=== PATIENT | male | born 1945 | race Caucasian/White ===

== ENCOUNTER → 2018-06-11 14:54 | Outpatient (CLI) | payer SELFPAY ==
--- NOTE | 2018-06-11 | CYSPIN_PTH ---
PATIENT: BAN RIVAS LOC: [facility] U#:[id number] AGE/SX: 80/M ROOM: RE06/11/[address]: Dr. Christ Santos MD : 1945 BED: DIS: SPEC #: [id number] RECD: 06/12/18 09:20 STATUS: KATHERINE EVIN #: [id number] MARILOU: 06/11/18 00:[address]: Christ Santos DEPT: CYTOLOGY RECD BY: Lauri Kemp Tissues: Urine Procedures: Pap Stain (control) Special Stain Group II Cytospin Fluid HEADER OPERATION: Not noted PRE-OP DIAGNOSIS: Dysuria; history of bladder mass on ultrasound TISSUE SUBMITTED: Urine for cytology DIAGNOSIS CYTOLOGY Urine for cytology (cytospin): Negative for malignant cells. AM:javier 06/13/18 COMMENT The specimen contains abundant acute inflammatory cells. Clinical correlation is suggested. CYTOLOGY STUDY Slides are reviewed. CYTOLOGY GROSS Received is <0.5 ml of clear yellow fluid labeled with the patient's name and and designated per the requisition as urine. Submitted for cytology preparation. 06/12/18 TC:5 CPT: 49888
[2018-06-11 15:06] LABS: Cytology, Body Fluid / CSF SEE PATHOLOGY REPORT
[2018-06-11 15:47] LABS: Absolute Lymphocyte Count 2.61 X10^3/ul (0.83-4.51); Absolute Neutrophil Count 4.4 X10^3/uL (2.0-7.7); Basophil# 0.02 X10^3/uL; Basophil% 0.3 % (0-1); Eosinophil# 0.15 X10^3/uL; Eosinophils% 1.9 % (0-5); Hematocrit 49.6 % (40-54); Hemoglobin 15.7 g/dl (13.0-16.5); Lymphocyte # 2.61 X10^3/ul (4.0); Lymphocyte % 33.6 % (19-41); Mean Corp Hgb Conc 31.7 g/gl (32-36); Mean Corpuscular Hgb 29.6 pg (27.0-32.0); Mean Corpuscular Volume 93.4 fL (80-94); Mean Platelet Vol. 11.1 fl (6.2-12.0); Monocyte# 0.62 X10^3/uL; Neutrophil # 4.37 X10^3/uL (2.7-7.7); Neutrophil % 56.2 % (47-70); Platelet Count 189 K/mm3 (150-450); RBC Distribution Width CV 13.9 % (11.6-14.6); RBC Distribution Width SD 47.3 fl (35.1-43.9); Red Blood Count 5.31 M/mm3 (4.6-6.2); White Blood Count 7.8 K/mm3 (4.4-11.0)
[2018-06-11 15:57] LABS: POSITIVE COUNT NO; POSITIVE DIFFERENTIAL NO; POSITIVE MORPHOLOGY NO
[2018-06-11 16:20] LABS: AST(SGOT) 48 U/L (15-37); Alanine Aminotransfer ALT/SGPT 29 U/L (16-61); Alkaline Phosphatase 65 U/L (45-117); Anion Gap 8 (5-15); BUN 30 mg/dL (7-18); BUN/Creat Ratio 24.8 RATIO (10-20); Calcium,Total 9.2 mg/dL (8.5-10.1); Chloride 107 mmol/L (98-107); Cholesterol 172 mg/dL (200); Creatinine, Serum 1.21 mg/dL (0.70-1.30); EST Glomerular Filtration Rate 62 mL/min (>60); Est Glom Filt Rate - Afr Amer 75 mL/min (>60); Globulin 4.1 g/dL (2.2-4.2); Glucose 93 mg/dL (74-106); High Density Lipoprotein 44 mg/dL; PSA,Total- Diagnostic 2.72 ng/mL (0.0-4.0); Potassium 4.5 mmol/L (3.5-5.1); Protein, Total 8.1 g/dL (6.4-8.2); Sodium Level 142 mmol/L (136-145); Thyroid Stim Hormone (TSH) 1.04 uIU/mL (0.358-3.74); Triglycerides 90 mg/dL; Very Low Density Lipoprotein 18 mg/dL (5-40)
[2018-06-11 17:20] LABS: Chlamydia Trachomatis by PCR Negative (Negative); Neisserai gonorrhoeae by PCR Negative (Negative); Probe Check PASS; Sample Adequacy Control PASS; Specimen Processing Control PASS
== END ==
PROVIDERS: Family Provider Family Medicine; PCP Family Medicine; Visit Provider Family Medicine
DX: R30.0 Dysuria (principal); R36.9 Urethral discharge, unspecified; R03.0 Elevated blood-pressure reading, without diagnosis of hypertension; N40.0 Benign prostatic hyperplasia without lower urinary tract symptoms
CPT/HCPCS: 36415; 80053; 80061; 84153; 84443; 85025; 87086; 87491; 87591; 88108; 88313

== ENCOUNTER → 2018-06-27 15:43 | Outpatient (CLI) | payer SELFPAY | LOC: LABSPEC 15:44 | PROVIDERS: Family Provider Family Medicine; PCP Family Medicine; Visit Provider Family Medicine | DX: R30.0 Dysuria (principal) | CPT/HCPCS: 87086 ==

== ENCOUNTER → 2018-07-04 12:10 | Outpatient (CLI) | payer OTHER, SELFPAY ==
--- NOTE | 2018-07-04 12:15 | US_ITS ---
STUDY: ULTRASOUND - URINARY BLADDER REASON FOR EXAM: Male, 73 years old. Bladder mass. TECHNIQUE: Ultrasound evaluation of the urinary bladder was performed with real-time and static mart-scale imaging. COMPARISON: None. FINDINGS: The distended volume of the urinary bladder is 184.65 ml. The empty volume of the urinary bladder is 157.73 ml. The bladder wall is diffusely thickened(3 to 9 mm). There is a 3.0 x 2.8 x 3.0 cm hyperechoic/mobile intraluminal bladder mass demonstrated. There is a 2.2 cm bladder diverticulum demonstrated. There is an enlarged prostrate gland with 57 cc(normal <30 cc volume). US/Post Void Residual Bladder IMPRESSION: 1. Significant postvoid bladder residual. Bladder diverticulum. Possible bladder outlet obstruction. Clinical correlation is advised. 2. Diffuse abnormal wall thickening of the bladder. 3. A 3 cm hyperechoic/mobile bladder mass, question large intraluminal calculus cystoscopic correlation is recommended. 4. Enlarged prostrate gland. Correlate with serum PSA values. Electronically Signed: Russel Hastings MD at 20:59 EDT Tel , Service support ,
== END ==
PROVIDERS: Family Provider Family Medicine; PCP Family Medicine; Visit Provider Family Medicine
DX: N32.89 Other specified disorders of bladder (principal)
CPT/HCPCS: 51798

== ENCOUNTER 2018-09-05 11:42 | Emergency (ER) | payer OTHER, SELFPAY ==
[2018-09-05 10:49] VITALS: BMI 36.1
[2018-09-05 11:45] VITALS: BP 153/93; PULSE 85; RESP 14; TEMP 36.4; O2SAT 96; BMI 36.5
--- NOTE | 2018-09-05 11:55 | ED.DCSUM_ITS ---
- ER Visit Summary Date of Service: 09/05/18 Chief Complaint: [] Abnormal EKG History of Present Illness: The patient is a 73 M [] sent in for abnormal EKG. He was at pretesting for surgery. He is having a bladder stone removed and some work on his prostate by urology. He has no symptoms and EKG was obtained. He stated he is never had one before. It showed sinus rhythm at a rate of 79. There is T wave inversion in 1 aVL biphasic T wave in V2 and biphasic T waves in V4 and T wave inversion in V5 and V6. No evidence of STEMI. Patient's never had a cardiac evaluation. He denies any cardiac symptoms at this time. Physical Examination: [] Vital signs reviewed General: Well-nourished well-developed Head: Normocephalic atraumatic Eyes: Pupils equal round and reactive to light extraocular movements intact ENT: TMs clear no hemotympanum no trauma Neck: Nontender full range of motion Cardiovascular: Regular rate rhythm no murmurs normal S1-S2 Respiratory: No distress clear to auscultation bilaterally chest nontender Abdomen: Soft nontender nondistended normal bowel sounds no masses Back: Nontender no CVA tenderness Extremities: Nontender active range of motion ?4 extremities no trauma Skin: Normal color no trauma Neuro alert oriented cranial nerves II through XII intact normal strength sensation reflexes Test Results: [] Emergency Department Course and Treatment: [] Lab work obtained. Lab work is n egative. Troponin negative. Chemistry showed a chloride of 110. CBC normal. I discussed with the patient he has a procedure next Saturday. He will follow- up with his family doctor for further evaluation to make sure he gets full medical clearance. I do not feel he needs to be admitted. He is asymptomatic with abnormal EKG. He has never had one before to compare this to. Treatment Plan: [] Disposition: [] Impression: [] Abnormal EKG?T wave inversions This note was generated with [employer] dictation software. It may contain incorrect words, spelling, and punctuation that were not noted in review of the chart prior to signing ED Disposition - Plan for ED Patient: Chief Complaint: Chest Other Referrals: Christ Santos MD [Primary Care Provider] -
[2018-09-05 12:17] LABS: Absolute Lymphocyte Count 2.43 X10^3/ul (0.83-4.51); Absolute Neutrophil Count 3.8 X10^3/uL (2.0-7.7); Basophil# 0.04 X10^3/uL; Basophil% 0.6 % (0-1); Eosinophil# 0.37 X10^3/uL; Eosinophils% 5.2 % (0-5); Hemoglobin 16.2 g/dl (13.0-16.5); Lymphocyte # 2.43 X10^3/ul (4.0); Lymphocyte % 33.8 % (19-41); Mean Corp Hgb Conc 33.1 g/gl (32-36); Mean Corpuscular Hgb 30.6 pg (27.0-32.0); Mean Corpuscular Volume 92.5 fL (80-94); Mean Platelet Vol. 10.4 fl (6.2-12.0); Monocyte# 0.52 X10^3/uL; Monocyte% 7.2 % (0-10); Neutrophil # 3.81 X10^3/uL (2.7-7.7); Neutrophil % 53.1 % (47-70); POSITIVE COUNT NO; POSITIVE DIFFERENTIAL NO; POSITIVE MORPHOLOGY NO; Platelet Count 173 K/mm3 (150-450); RBC Distribution Width CV 13.9 % (11.6-14.6); RBC Distribution Width SD 46.9 fl (35.1-43.9); White Blood Count 7.2 K/mm3 (4.4-11.0)
[2018-09-05 12:28] LABS: Anion Gap 8 (5-15); BUN 30 mg/dL (7-18); BUN/Creat Ratio 27.5 RATIO (10-20); Calcium,Total 8.8 mg/dL (8.5-10.1); Chloride 110 mmol/L (98-107); Creatinine, Serum 1.09 mg/dL (0.70-1.30); EST Glomerular Filtration Rate 70 mL/min (>60); Est Glom Filt Rate - Afr Amer 85 mL/min (>60); Estimated Creatinine Clearance 65.26 ml/min; Glucose 97 mg/dL (74-106); Potassium 4.1 mmol/L (3.5-5.1); Sodium Level 142 mmol/L (136-145)
--- NOTE | 2018-09-05 12:41 | ED.DEP ---
ED Disposition - Plan for ED Patient: Disposition: Home or Assisted Living Chief Complaint: Chest Other Instructions: Electrocardiogram (ECG) Referrals: Christ Santos MD [Primary Care Provider] -
[2018-09-05 12:55] VITALS: BP 150/90; PULSE 84; RESP 18; O2SAT 94
== END 2018-09-05 12:56 | disposition home or self-care (01) ==
PROVIDERS: Emergency Provider Emergency Medicine; Family Provider Family Medicine; PCP Family Medicine
DX: R94.31 Abnormal electrocardiogram [ECG] [EKG] (principal)
CPT/HCPCS: 80048; 84484; 85025; 99283; A4216

== ENCOUNTER 2018-09-10 11:14 | Inpatient (IN) | payer SELFPAY ==
[2018-09-05 10:49] VITALS: BP 144/87; PULSE 81; RESP 18; TEMP 36.8; O2SAT 94
--- NOTE | 2018-09-05 12:50 | SDCEKG_ITS ---
Test Reason : Blood Pressure : / mmHG Vent. Rate : 079 BPM Atrial Rate : 079 BPM P-R Int : 168 ms QRS Dur : 090 ms QT Int : 388 ms P-R-T Axes : -02 000 122 degrees QTc Int : 444 ms Normal sinus rhythm ST & T wave abnormality, consider lateral ischemia Abnormal ECG Confirmed by JACQUELINE DIEHL, LISBETH ([id number]), graphic editor OSEAS VILLAGOMEZ ([id number]) on 09/08/2018 9:04:07 AM Referred By: Hilton Perez Confirmed By:LISBETH PHILLIPS MD
[2018-09-10] VITALS (11 sets, daily range): BP systolic 117–162; BP diastolic 66–97; PULSE 70–90; RESP 14–17; TEMP 36.2–37.5; O2SAT 92–96; BMI 36.1; BMI 33.5
--- NOTE | 2018-09-10 11:18 | ECHOD_ITS ---
Reason For Study: ABNORMAL EKG Procedure This was a 2D Doppler, Color Flow transthoracic echocardiogram. Exam performed portable in patient room. Left Ventricle Moderate concentric left ventricular hypertrophy. The estimated ejection fraction is 65 %. Stage 1 diastolic dysfunction. No regional wall motion abnormalities noted. Right Ventricle Normal size and thickness. Normal systolic function. Atria Normal left atrium. Normal right atrium. Normal atrial septum. Mitral Valve Severe mitral annular calcification extending into the posterior leaflet. Mild diffuse mitral valve thickening. Trivial mitral valve insufficiency. Tricuspid Valve Normal tricuspid valve. Trivial tricuspid valve insufficiency. Right ventricular systolic pressure estimated to be 30 mmHg. Aortic Valve Trisinus/trileaflet aortic valve. Normal aortic valve. Pulmonic Valve Normal pulmonic valve. Great Vessels Normal aortic root. Normal arch. Normal inferior vena cava. Inferior vena cava collapse with sniff. Pericardium/Pleural No pericardial effusion. MMode/2D Measurements & Calculations LVIDd: 4.7 cm IVSd: 1.8 cm Ao root diam: 3.6 cm LVIDs: 3.1 cm LVPWd: 1.3 cm RVDd: 3.7 cm FS: 34.2 % LAV(MOD-bp): 98.4 ml LVAd ap4: 42.2 cm2 SV(MOD-sp4): 90.1 ml LAV(MOD-bp) Indexed: 40.9 ml/m2 EDV(MOD-sp4): 163.7 ml LAV(MOD-sp2): 95.3 ml EDV(sp4-el): 169.7 ml LAV(MOD-sp4): 94.5 ml LVAs ap4: 26.0 cm2 ESV(MOD-sp4): 73.6 ml ESV(sp4-el): 74.5 ml EF(MOD-sp4): 55.1 % EF(sp4-el): 56.1 % SV(sp4-el): 95.2 ml LA A4 area: 26.7 cm2 LA dimension(2D): 4.6 cm RA A4 area: 18.5 cm2 Time Measurements MV dec time: 0.22 sec Doppler Measurements & Calculations MV E max harsi: 58.2 cm/sec Lat Peak E' Haris: 7.7 cm/sec Med Peak E' Haris: 4.1 cm/sec MV A max haris: 96.5 cm/sec E/E' lat: 7.6 E/E' med: 14.2 MV E/A: 0.60 Ao V2 max: 145.2 cm/sec LV V1 max: 114.6 cm/sec PA V2 max: 124.1 cm/sec Ao max P.4 mmHg LV V1 max P.3 mmHg TR max haris: 239.9 cm/sec TR max P.0 mmHg Interpretation Summary Moderate concentric left ventricular hypertrophy. The estimated ejection fraction is 65 %. Stage 1 diastolic dysfunction. Trivial mitral valve insufficiency. Trivial tricuspid valve insufficiency. Right ventricular systolic pressure estimated to be 30 mmHg. There is no comparison study available. Ordering Physician: Hilton Perez Referring Physician: Hilton Perez Performed By: Sussy Swenson RDCS
--- NOTE | 2018-09-10 11:34 | STEWCON_ITS ---
Reason For Study: PRE OP Stress Results Protocol: Raheel Protocol Maximum Predicted HR: 146 bpm Target HR: 124 bpm % Maximum Predicted HR: 110 % DurationHeart Rate Stage (mm:ss) (bpm) BP Comment BASELINE 89 142/98 2 CC DEFINITY STAGE 1 3:00 136 200/104 STAGE 2 2:15 160 212/1082 CC DEFINITY, SOB, NO CHEST PAIN RECOVERY 104 150/94 Stress Duration: 5:15 mm:ss Maximum Stress HR: 160 bpm Baseline Echocardiogram Findings The estimated ejection fraction is 65 %. Concentric left ventricular hypertrophy. Stress Echo Wall motion Data Resting WM Intermediate WM Stress WM Resting Wall Motion Wall Motion Stress No regional wall motion No regional wall motion abnormalities noted. abnormalities noted. EKG Data Normal intervals are noted. The patient exercised according to the regular Raheel protocol for a total duration of 5:15. The maximum heart rate attained was 160 beats per minute. This was 109% of maximum predicted heart rate. The patient exercised into stage 2 of the Raheel protocol. At peak exercise, upsloping ST changes only were noted, which did not meet the criteria for ischemia. No arrhythmias noted. No clinical angina was noted. Interpretation Summary The study was technically difficult. Contrast injection was performed. The estimated ejection fraction is 65 %. Normal adequate treadmill echocardiogram. Negative for ischemia by ECG and ECHO criteria. No anginal symptoms noted. No arrhythmias noted. Below average exercise capacity for age. HTN BP response to exercise. Final LVEF=75%. Decreased sensitivity due to poor echo windows requiring Definity enhancing agent. Test terminated due to dyspnea. Ordering Physician: Jarvis Kramer Referring Physician: Hilton Perez Performed By: Soniya Syed RDCS
[2018-09-10] MEDS: 0.9% Normal Saline 1,000 ML 75 ML IV (15:18)
[2018-09-10] MEDS: 0.9% NaCl Peripheral Flush Adult/Peds IV (15:18)
--- NOTE | 2018-09-10 15:51 | PCM.DC.URO ---
Discharge Diet: Light diet - advance as tolerated Discharge Activity: Return to Normal Activity Call your doctor if you observe: Fever of 101 or Higher Suture Line Care: Avoid Pulling/Pushing, Avoid Pinching/Bending Instructions: Benign Prostatic Hyperplasia Allergies/Adverse Reactions: Allergies Penicillins Allergy (Verified 09/05/18 11:43) Rash Medications to take at Discharge Finasteride [Proscar] 5 mg PO DAILY #90 tablet 09/10/18 Tamsulosin HCl [Flomax] 0.4 mg PO QHS #90 capsule 09/10/18 The following prescriptions were given: Finasteride [Proscar] 5 mg PO DAILY #90 tablet Tamsulosin HCl [Flomax] 0.4 mg PO QHS #90 capsule Primary Care Physician: Christ Santos MD [Primary Care Provider] - Test Results: Test results from this visit will be discussed in further detail at your follow-up appointment, if applicable. Please Follow Up With: Hilton Perez MD When: in 2 weeks, please call to make an appointment.
--- NOTE | 2018-09-10 15:58 | DCINST_ITS ---
Discharge Diet: Light diet - advance as tolerated Discharge Activity: Return to Normal Activity Call your doctor if you observe: Fever of 101 or Higher Suture Line Care: Avoid Pulling/Pushing, Avoid Pinching/Bending Instructions: Benign Prostatic Hyperplasia Allergies/Adverse Reactions: Allergies Penicillins Allergy (Verified 09/05/18 11:43) Rash Medications to take at Discharge Finasteride [Proscar] 5 mg PO DAILY #90 tablet 09/10/18 Tamsulosin HCl [Flomax] 0.4 mg PO QHS #90 capsule 09/10/18 The following prescriptions were given: Finasteride [Proscar] 5 mg PO DAILY #90 tablet Tamsulosin HCl [Flomax] 0.4 mg PO QHS #90 capsule Primary Care Physician: Christ Santos MD [Primary Care Provider] - Test Results: Test results from this visit will be discussed in further detail at your follow- up appointment, if applicable. Please Follow Up With: Hilton Perez MD When: in 2 weeks, please call to make an appointment.
--- NOTE | 2018-09-10 15:58 | CON.PCM_ITS ---
Problem List (1) Abnormal EKG Status: Acute (2) Hypertension Status: Chronic (3) Pre-operative cardiovascular exam, new EKG abnormalities c/w ischemia Status: Acute Reason for Consult Date of Consultation: 09/10/18 Reason for Consultation: Preoperative stratification, abnormal EKG, hypertension History of Present Illness: The patient is a 73 year old M, previous esparza, with a history of hypertension, unknown cholesterol, and no previous known coronary disease. Patient apparently was supposed to undergo a urological procedure a week or 2 ago, and upon arrival to preadmission testing an EKG was performed. This demonstrated normal sinus rhythm with previously unknown anterior T wave inversion and ST segment changes. Although the patient was asymptomatic and was sent to the emergency room at [facility] where he was subsequently discharged. He was supposed to follow-up with his PCP for preoperative stratification, and apparently did so however do not undergo any preoperative stress testing or echocardiogram. Patient again today return for elective urological procedure, and his EKG was repeated which identified the similar T wave inversions. His urological procedure was postponed, and I was called by anesthesia regarding the patient's situation. I had offered the patient to be seen as an outpatient however Dr. Gama felt it more urgent to the patient be admitted for evaluation sooner than later. Upon reviewing with the patient he denies any chest pain, angina, shortness of breath or dyspnea on exertion. He has no known coronary history, denies catheterization in the past. He is a nondiabetic, and non-smoker. Patient underwent a 2D echo with Doppler today which demonstrated moderate LVH, normal LV function, and normal right-sided pressures. He then underwent a treadmill echocardiogram and reach target heart rate. Patient had no anginal symptoms, had a hypertensive blood pressure response exercise, and had no evidence of ischemia. [] Past Medical History Allergies/Adverse Reactions: Allergies Penicillins Allergy (Verified 09/05/18 11:43) Rash Home Medications: Ambulatory Orders Medication Instructions Recorded Finasteride [Proscar] 5 mg PO DAILY #90 tablet 09/10/18 Tamsulosin HCl [Flomax] 0.4 mg PO QHS #90 capsule 09/10/18 Past Medical History (Chronic Problems): Chronic Problems (This Medical Record has been edited. Action required.) Hypertension (Chronic) Smoking Status: Never smoker Tobacco Use: Non-smoker Review of Systems - Review of Systems General: Denies: Fever, Night Sweats, Fatigue Cardiovascular: Denies: Chest Discomfort, Shortness of Breath, Orthopnea, PND, Peripheral Edema, Palpitations, Lightheadedness, Dizziness, Near Syncope, Syncope Respiratory: Denies: Cough, Sputum Production, Hemoptysis Gastrointestinal: Denies: Hematemesis, Hematochezia, Melena Genitourinary: Denies: Dysuria, Hematuria Skin: Denies: Rash Subjectve: Patient resting comfortably. No acute distress. Objective: Vital Signs Temp Pulse Resp BP Pulse Ox 97.8 F 84 16 132/89 H 93 09/10/18 13:12 09/10/18 13:12 09/10/18 13:12 09/10/18 13:12 09/10/18 13:12 Oxygen Delivery Method Room Air Weight: 247 lb 5.738 oz Body Mass Index (BMI) 33.5 General: Awake, Alert, Oriented x 3 HEENT: PERRL, EOMI, Sclera Non Icteric Neck: Supple, Good ROM, No Lymph Node Enlargement Lungs: Clear to auscultation Cardiovascular: Regular Rhythm, Normal S1, Normal S2, No Murmurs, No Rubs, No Gallops Vascular: No Carotid Bruits, Normal Femoral Pulses, Normal Radial Pulses, Normal Dorsalis Pedal Pulse, Normal Posterior Tibial Pulses Abdomen: Bowel Sounds Present, Soft, Non Tender, No HSM, No Organomegaly Extremities: No Cyanosis, No Clubbing, No edema Neurological: No Focal Motor or Sensory Deficit Rhythm: EKG: ECHO: Stress Test: Cardiac Cath: PCI: CT Surgery: Holter monitor: EPS: PPM: CXR: Chest CT Scan: Assessment/Plan 1. Preoperative stratification: Patient underwent a 2D echo with Doppler as well as a treadmill echocardiogram, both of which were unimpressive for any kind of coronary ischemia or LV dysfunction. He has been asymptomatic. His EKG changes are most likely result of his moderate LVH, with concomitant strain pattern on his EKG. At this point I would not recommend catheterization at this time. I would designate the patient is a low risk from a cardiac standpoint for noncardiac surgery such as urological procedure. I do not believe he requires any additional workup at this time. His EKG will most likely always be abnormal given his LVH with repolarization abnormalities. 2. Hyperlipidemia: Recommend obtaining a fasting lipid profile to complete his cardiac risk stratification. Would recommend treatment with statin based medications if his LDL is greater than 130. 3. Thank you very much for the opportunity to participate in the cardiac care of your patient. Consultation time approximately 1 hour in total. Code Visit Inpatient E&M: 34475 Init Hosp L2
[2018-09-10] MEDS: Lidocaine Jelly 2% 20 ML Syringe (URO-JET) 20 APPLIC (16:01)
[2018-09-10] MEDS: Cefazolin 2 GM in 0.9% Normal Saline 100 ML IV (16:07)
--- NOTE | 2018-09-10 17:24 | OP.PCM_ITS ---
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 Post-Operative Diagnosis: the same Surgery/Procedure Performed:: Cystoscopy and laser of bladder stone and cystolitholapaxy of a very large bladder stone Description of Surgical Findings:: 73-year-old male taken back to the operating room after smooth induction of anesthesia he was placed in dorsal lithotomy position went into the bladder with a 21 Hungarian rigid cystourethroscope the entire length the urethra is normal prostate was very enlarged with bilateral hypertrophy and small median lobe once I got into the bladder there was a very large stone occupying the lateral aspect of the bladder probably about 4 cm in size. I then used 1000 ?m laser fiber took about 45 minutes to laser the stone little tiny pieces during that time would Anisa evacuator all the pieces out as a lasered finally I got the stone laser completely all the stones were evacuated out no visible stones inside the bladder at the end minimal bleeding from the procedure the prostate was a little bit inflamed and the mucosa and the bladder mucosa is well I then drained the bladder did not leave a Torres catheter patient anesthetic is being reversed plan is to discharge patient home the night after he is able to urinate. Type of Anesthesia:: General Drains: none - Admit VTE Documentation VTE Present on Admission: No VTE Mechan Device Prophylaxis: SCD's
[2018-09-10 20:45] LABS: Cholesterol 161 mg/dL (200); High Density Lipoprotein 30 mg/dL; Triglycerides 82 mg/dL; Very Low Density Lipoprotein 16 mg/dL (5-40)
[2018-09-11 03:05] VITALS: PULSE 66
[2018-09-11 03:20] VITALS: BP 118/66; PULSE 69; RESP 14; TEMP 36.4; O2SAT 94
[2018-09-11 06:58] VITALS: PULSE 74
--- NOTE | 2018-09-11 07:01 | PN_ITS ---
Patient Problems: Active and Suspected Problems (This Medical Record has been edited. Action required.) Abnormal EKG (Acute) Pre-operative cardiovascular exam, new EKG abnormalities c/w ischemia (Acute) Subjective: 73-year-old male status post laser of a bladder stone he had no cardiac problems after surgery no shortness of breath no chest pain doing well. Was able to urinate the urine is now clear. He is going to go home on Flomax and Proscar prescriptions were sent to [facility] pharmacy family was instructed to pick this up. Clinically stable this morning he is free to be discharged home this morning per the nurse's protocol discharge order placed. - Physical Exam General: Alert, Oriented x3, Cooperative HEENT: Atraumatic, PERRLA, EOMI, Normocephalic Neck: Supple, No JVD, Negative Carotid Bruits Lungs: Clear to auscultation, Normal air movement Cardiovascular: Regular rate, No murmurs Abdomen: Bowel Sounds Present, Soft, Non Tender Extremities: No edema, Capillary Refill Less than 3 Seconds Skin: No rashes, No breakdown Musculoskeletal: No Tenderness to Palpation of Joints or Extremities Neurological: Cranial nerves II-XII grossly intact Psych/Mental Status: Normal Affect, Appropriate Vital Signs Temp Pulse Resp BP Pulse Ox 97.5 F L 69 14 118/66 94 09/11/18 03:20 09/11/18 03:20 09/11/18 03:20 09/11/18 03:20 09/11/18 03:20 Oxygen Flow Rate (L/min) 2 Oxygen Delivery Method Room Air Weight: 112.2 kg Body Mass Index (BMI) 33.5 Intake and Output for Last 24 Hours 09/09/18 09/10/18 09/11/18 23:59 23:59 23:59 Intake Total 1328 / 1328 506 / 506 Output Total 600 / 600 825 / 825 Balance 728 / 728 -319 / -319 Laboratory Tests Past 24 Hrs 09/10/18 20:20 Triglycerides 82 Cholesterol 161 LDL Cholesterol 115 VLDL Cholesterol 16 HDL Cholesterol 30 L Medical Necessity - Tobacco Use Smoking Status: Never smoker Tobacco Use: Non-smoker Assessment/Plan All Active Problems (This Medical Record has been edited. Action required.) Abnormal EKG (Acute) Pre-operative cardiovascular exam, new EKG abnormalities c/w ischemia (Acute) 73-year-old male status post laser of a bladder stone clinically doing well this morning discharged to home.
[2018-09-11 07:57] VITALS: BP 130/70; PULSE 76; RESP 15; TEMP 36.6; O2SAT 94
--- OUTSIDE RECORDS SUMMARY | 2018-11-05 13:30 | XMS RPT_ITS ---
:1945 Author Organization OHIP Care Team Providers Name Role Phone Jarvis Kramer Attending Unavailable Hilton Perez Referring Unavailable Christ Santos Attending Unavailable Christ Santos Primary Care Unavailable Christ Santos Attending Unavailable Christ Santos Referring Unavailable SchChrist yang Primary Care Unavailable Christ Santos Attending Unavailable Christ Santos Referring Unavailable SchChrist yang Primary Care Unavailable Christ Santos Attending Unavailable Christ Santos Referring Unavailable Christ Santos Primary Care Unavailable Hilton Perez Attending Unavailable Hilton Perez Referring Unavailable Christ Santos E Primary Care Unavailable Hilton Perez Admitting Unavailable Jarvis Kramer Consulting Unavailable Christ Santos Primary Care Unavailable Claudio Velazquez Attending Unavailable Eden, Devan Attending Unavailable Hilton Perez Referring Unavailable PROBLEMS PROBLEMS DATE TYPE CONDITION / CODE ATTENDING STATUS SOURCE 09/19/2018 Unknown R94.31 - Abnormal Eden, Devan Active [facility] [ECG] [EKG] / Hospital R94.31(ICD-10) Repository 09/19/2018 Unknown I10 - Essential Eden, [place] Active [place] (primary) hypertension Community / I10(ICD-10) Hospital Repository 07/07/2018 Unknown N32.89 - Other SchChrist yang Bernardo Hi specified disorders of E [facility] bladder / Hospital N32.89(ICD-10) Repository 06/27/2018 Unknown R30.0 - Dysuria / Christ Santos R30.0(ICD-10) E [facility] Hospital Repository PROCEDURES PROCEDURES No Procedure Records FoundRESULTS RESULTS CONSULTATION Observed: 09/12/2018 Status: F Source: LISM[place] 10:20 AM [facility] REPOSITORY [facility] Medical Records Department [address] [place] [address] Consultation 09/10/18 1553 MR#: [id number] Acct: [id number] Name: BAN RIVAS Rep #: [id number] : 1945 73 From: Jarvis Kramer MD PCP: Christ Santos MD Status: DIS IN Y Location: [place] [address] Problem List (1) Abnormal EKG Status: Acute (2) Hypertension Status: Chronic (3) Pre-operative cardiovascular exam, new EKG abnormalities c/w ischemia Status: Acute Reason for Consult Date of Consultation: 09/10/18 Reason for Consultation: Preoperative stratification, abnormal EKG, hypertension History of Present Illness: The patient is a 73 year old M, previous esparza, with a history of hypertension, unknown cholesterol, and no previous known coronary disease. Patient apparently was supposed to undergo a urological procedure a week or 2 ago, and upon arrival to preadmission testing an EKG was performed. This demonstrated normal sinus rhythm with previously unknown anterior T wave inversion and ST segment changes. Although the patient was asymptomatic and was sent to the emergency room at [facility] where he was subsequently discharged. He was supposed to follow-up with his PCP for preoperative stratification, and apparently did so however do not undergo any preoperative stress testing or echocardiogram. Patient again today return for elective urological procedure, and his EKG was repeated which identified the similar T wave inversions. His urological procedure was postponed, and I was called by anesthesia regarding the patient's situation. I had offered the patient to be seen as an outpatient however Dr. Gama felt it more urgent to the patient be admitted for evaluation sooner than later. Upon reviewing with the patient he denies any chest pain, angina, shortness of breath or dyspnea on exertion. He has no known coronary history, denies catheterization in the past. He is a nondiabetic, and non-smoker. Patient underwent a 2D echo with Doppler today which demonstrated moderate LVH, normal LV function, and normal right-sided pressures. He then underwent a treadmill echocardiogram and reach target heart rate. Patient had no anginal symptoms, had a hypertensive blood pressure response exercise, and had no evidence of ischemia. [] Past Medical History Allergies/Adverse Reactions: Allergies Penicillins Allergy (Verified 09/05/18 11:43) Rash Home Medications: Ambulatory Orders Medication Instructions Recorded Finasteride [Proscar] 5 mg PO DAILY #90 tablet 09/10/18 Tamsulosin HCl [Flomax] 0.4 mg PO QHS #90 capsule 09/10/18 Past Medical History (Chronic Problems): Chronic Problems (This Medical Record has been edited. Action required.) Hypertension (Chronic) Smoking Status: Never smoker Tobacco Use: Non-smoker Review of Systems - Review of Systems General: Denies: Fever, Night Sweats, Fatigue Cardiovascular: Denies: Chest Discomfort, Shortness of Breath, Orthopnea, PND, Peripheral Edema, Palpitations, Lightheadedness, Dizziness, Near Syncope, Syncope Respiratory: Denies: Cough, Sputum Production, Hemoptysis Gastrointestinal: Denies: Hematemesis, Hematochezia, Melena Genitourinary: Denies: Dysuria, Hematuria Skin: Denies: Rash Subjectve: Patient resting comfortably. No acute distress. Objective: Vital Signs Temp Pulse Resp BP Pulse Ox 97.8 F 84 16 132/89 H 93 09/10/18 13:12 09/10/18 13:12 09/10/18 13:12 09/10/18 13:12 09/10/18 13:12 Oxygen Delivery Method Room Air Weight: 247 lb 5.738 oz Body Mass Index (BMI) 33.5 General: Awake, Alert, Oriented x 3 HEENT: PERRL, EOMI, Sclera Non Icteric Neck: Supple, Good ROM, No Lymph Node Enlargement Lungs: Clear to auscultation Cardiovascular: Regular Rhythm, Normal S1, Normal S2, No Murmurs, No Rubs, No Gallops Vascular: No Carotid Bruits, Normal Femoral Pulses, Normal Radial Pulses, Normal Dorsalis Pedal Pulse, Normal Posterior Tibial Pulses Abdomen: Bowel Sounds Present, Soft, Non Tender, No HSM, No Organomegaly Extremities: No Cyanosis, No Clubbing, No edema Neurological: No Focal Motor or Sensory Deficit Rhythm: EKG: ECHO: Stress Test: Cardiac Cath: PCI: CT Surgery: Holter monitor: EPS: PPM: CXR: Chest CT Scan: Assessment/Plan 1. Preoperative stratification: Patient underwent a 2D echo with Doppler as well as a treadmill echocardiogram, both of which were unimpressive for any kind of coronary ischemia or LV dysfunction. He has been asymptomatic. His EKG changes are most likely result of his moderate LVH, with concomitant strain pattern on his EKG. At this point I would not recommend catheterization at this time. I would designate the patient is a low risk from a cardiac standpoint for noncardiac surgery such as urological procedure. I do not believe he requires any additional workup at this time. His EKG will most likely always be abnormal given his LVH with repolarization abnormalities. 2. Hyperlipidemia: Recommend obtaining a fasting lipid profile to complete his cardiac risk stratification. Would recommend treatment with statin based medications if his LDL is greater than 130. 3. Thank you very much for the opportunity to participate in the cardiac care of your patient. Consultation time approximately 1 hour in total. Code Visit Inpatient E AND M: 11695 Init Hosp L2 09/12/18 1020 <Electronically signed by Jarvis Kramer MD> Date Jarvis Kramer MD Cosigner Signature (if applicable): Date CC: Jarvis Kramer MD; Christ Santos MD; Hilton Perez MD Signed 12 LEAD ELECTROCARDIOGRAM Observed: 09/12/2018 Status: F Source: LISMORE 9:20 AM [facility] REPOSITORY [facility] Cardiovascular Services [address] [place] [address] EKG - [facility] 09/05/18 1120 MR#: [id number] Acct: [id number] Name: BAN RIVAS Rep #: [id number] : 1945 73 From: Devan Harmon MD Attending Dr: Ana DIEHL,Hilton Delgado Status: DIS IN Ordering Dr: Louis Rajput MD Date: 09/05/18 Location: [facility] Sex: M C Admitted: 09/10/18 Test Reason : Blood Pressure : / mmHG Vent. Rate : 079 BPM Atrial Rate : 079 BPM P-R Int : 168 ms QRS Dur : 090 ms QT Int : 388 ms P-R-T Axes : -02 000 122 degrees QTc Int : 444 ms Normal sinus rhythm ST AND T wave abnormality, consider lateral ischemia Abnormal ECG Confirmed by DEVAN HARMON MD ([id number]), editor book OSEAS VILLAGOMEZ ([id number]) on 09/08/2018 9:04:07 AM Referred By: Hilton Perez Confirmed By:DEVAN HARMON MD 09/08/18 0904 Date Devan Harmon MD CC: Louis Rajput MD; Christ Santos MD; Hilton Perez MD Date Dictated: 09/05/18 1120 Date Transcribed: 09/05/18 1120 Milk Truck Driver: Signed LIPID PROFILE Collected: 09/10/2018 Status: F Source: [place] 8:20 PM [facility] REPOSITORY Order Comment: PATIENT WAS IN SURGERY. SPOKE TO AG, TO BE DRAWN BEFORE PATIENT IS DISCHARGED. TYPE CODE TESTS RESULT OUT OF RANGE REFERENCE UNITS LAB L501.4900 200 mg/dL Normal CHOL 161 Result Comment: <200 mg/dL Desirable 200-240 mg/dL Borderline >240 mg/dL High Risk LAB L501.5000 mg/dL Normal TRIG 82 Result Comment: The drugs N-Acetylcysteine and Metamizole may falsely depress this assay. Serum Triglycerides Reference Interval Normal <150 mg/dL Borderline high 150 - 199 mg/dL High 200 - 499 mg/dL Very High > or = 500 mg/dL LAB L501.6400 mg/dL Low HDL 30 Result Comment: The drugs N-Acetylcysteine and Metamizole may falsely depress this assay. Reference Range HDL <40 mg/dL Low HDL Cholesterol HDL >or= 60 mg/dL High HDL Cholesterol LAB L501.6500 0-130 mg/dL Normal LDL 115 LAB L501.6600 5-40 mg/dL Normal VLDL 16 Performed By: #### L500.4100 #### [facility] [address] 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 Post-Operative Diagnosis: the same Surgery/Procedure Performed:: Cystoscopy and laser of bladder stone and cystolitholapaxy of a very large bladder stone Description of Surgical Findings:: 73-year-old male taken back to the operating room after smooth induction of anesthesia he was placed in dorsal lithotomy position went into the bladder with a 21 [place] rigid cystourethroscope the entire length the urethra is normal prostate was very enlarged with bilateral hypertrophy and small median lobe once I got into the bladder there was a very large stone occupying the lateral aspect of the bladder probably about 4 cm in size. I then used 1000 m laser fiber took about 45 minutes to laser the stone little tiny pieces during that time would Anisa evacuator all the pieces out as a lasered finally I got the stone laser completely all the stones were evacuated out no visible stones inside the bladder at the end minimal bleeding from the procedure the prostate was a little bit inflamed and the mucosa and the bladder mucosa is well I then drained the bladder did not leave a Torres catheter patient anesthetic is being reversed plan is to discharge patient home the night after he is able to urinate. Type of Anesthesia:: General Drains: none - Admit VTE Documentation VTE Present on Admission: No VTE Mechan Device Prophylaxis: SCD's 09/10/181723 <Electronically signed by Hilton Perez MD> Date Hilton Perez MD CC: Jarvis Kramer MD; Christ Santos MD; Hilton Perez MD Signed DISCHARGE INSTRUCTION Observed: 09/10/2018 Status: F Source: [place] 3:59 PM [facility] REPOSITORY [facility] Medical Records Department [address] [place] [address] Instructions for Home/Discharge Instructions 09/10/18 1551 MR#: [id number] Acct: [id number] Name: BAN RIVAS Rep #: [id number] : 1945 73 From: Hilton Perez MD PCP: Christ Santos MD Status: ADM IN Discharge Diet: Light diet - advance as tolerated Discharge Activity: Return to Normal Activity Call your doctor if you observe: Fever of 101 or Higher Suture Line Care: Avoid Pulling/Pushing, Avoid Pinching/Bending Instructions: Benign Prostatic Hyperplasia Allergies/Adverse Reactions: Allergies Penicillins Allergy (Verified 09/05/18 11:43) Rash Medications to take at Discharge Finasteride [Proscar] 5 mg PO DAILY #90 tablet 09/10/18 Tamsulosin HCl [Flomax] 0.4 mg PO QHS #90 capsule 09/10/18 The following prescriptions were given: Finasteride [Proscar] 5 mg PO DAILY #90 tablet Tamsulosin HCl [Flomax] 0.4 mg PO QHS #90 capsule Primary Care Physician: Christ Santos MD [Primary Care Provider] - Test Results: Test results from this visit will be discussed in further detail at your follow-up appointment, if applicable. Please Follow Up With: Hilton Perez MD When: in 2 weeks, please call to make an appointment. 09/10/18 1559 <Electronically signed by Hilton Perez MD> Date Hilton Perez MD CC: Jarvis Kramer MD; Christ Santos MD STRESS TEST ECHO W/ Observed: 09/10/2018 Status: F Source: [place] CONTRAST 2:50 PM [facility] REPOSITORY [facility] Cardiovascular Services [address] [place] [address] Stress Test Echo W/Contrast MR#: [id number] Acct: [id number] Name: BAN RIVAS Rep #: [id number] : 1945 73 From: Jarvis Kramer MD Primary Care: Christ Santos MD Status: ADM IN Ordering Dr: Jarvis Kramer MD Sex: M C Reason For Study: PRE OP Stress Results Protocol: Raheel Protocol Maximum Predicted HR: 146 bpm Target HR: 124 bpm % Maximum Predicted HR: 110 % DurationHeart Rate Stage (mm:ss) (bpm) BP Comment BASELINE 89 142/98 2 CC DEFINITY STAGE 1 3:00 136 200/104 STAGE 2 2:15 160 212/1082 CC DEFINITY, SOB, NO CHEST PAIN RECOVERY 104 150/94 Stress Duration: 5:15 mm:ss Maximum Stress HR: 160 bpm Baseline Echocardiogram Findings The estimated ejection fraction is 65 %. Concentric left ventricular hypertrophy. Stress Echo Wall motion Data Resting WM Intermediate WM Stress WM Resting Wall Motion Wall Motion Stress No regional wall motion No regional wall motion abnormalities noted. abnormalities noted. EKG Data Normal intervals are noted. The patient exercised according to the regular Raheel protocol for a total duration of 5:15. The maximum heart rate attained was 160 beats per minute. This was 109% of maximum predicted heart rate. The patient exercised into stage 2 of the Raheel protocol. At peak exercise, upsloping ST changes only were noted, which did not meet the criteria for ischemia. No arrhythmias noted. No clinical angina was noted. Interpretation Summary The study was technically difficult. Contrast injection was performed. The estimated ejection fraction is 65 %. Normal adequate treadmill echocardiogram. Negative for ischemia by ECG and ECHO criteria. No anginal symptoms noted. No arrhythmias noted. Below average exercise capacity for age. HTN BP response to exercise. Final LVEF=75%. Decreased sensitivity due to poor echo windows requiring Definity enhancing agent. Test terminated due to dyspnea. Ordering Physician: Jarvis Kramer Referring Physician: Hilton Perez Performed By: Soniya Syed, [facility] 09/10/18 1450 Date Jarvis Kramer MD CC: Jarvis Kramer MD; Christ Santos MD; Hilton Perez MD Date Dictated: 09/10/18 1355 Date Transcribed: 09/10/18 1450 Milk Truck Driver: Signed ECHOCARDIOGRAM COMPLETE Observed: 09/10/2018 Status: F Source: [place] 12:51 PM [facility] REPOSITORY [facility] Cardiovascular Services [address] [place] [address] Echo Complete 09/10/18 1129 MR#: [id number] Acct: [id number] Name: BAN RIVAS Rep #: [id number] : 1945 73 From: Jarvis Kramer MD Attending Dr: Hilton Perez MD Status: REG [facility] Ordering Dr: Hilton Perez MD Date: 09/10/18 Location: Sex: M C Admitted: Reason For Study: ABNORMAL EKG Procedure This was a 2D Doppler, Color Flow transthoracic echocardiogram. Exam performed portable in patient room. Left Ventricle Moderate concentric left ventricular hypertrophy. The estimated ejection fraction is 65 %. Stage 1 diastolic dysfunction. No regional wall motion abnormalities noted. Right Ventricle Normal size and thickness. Normal systolic function. Atria Normal left atrium. Normal right atrium. Normal atrial septum. Mitral Valve Severe mitral annular calcification extending into the posterior leaflet. Mild diffuse mitral valve thickening. Trivial mitral valve insufficiency. Tricuspid Valve Normal tricuspid valve. Trivial tricuspid valve insufficiency. Right ventricular systolic pressure estimated to be 30 mmHg. Aortic Valve Trisinus/trileaflet aortic valve. Normal aortic valve. Pulmonic Valve Normal pulmonic valve. Great Vessels Normal aortic root. Normal arch. Normal inferior vena cava. Inferior vena cava collapse with sniff. Pericardium/Pleural No pericardial effusion. MMode/2D Measurements AND Calculations LVIDd: 4.7 cm IVSd: 1.8 cm Ao root diam: 3.6 cm LVIDs: 3.1 cm LVPWd: 1.3 cm RVDd: 3.7 cm FS: 34.2 % LAV(MOD-bp): 98.4 ml LVAd ap4: 42.2 cm2 SV(MOD-sp4): 90.1 ml LAV(MOD-bp) Indexed: 40.9 ml/m2 EDV(MOD-sp4): 163.7 ml LAV(MOD-sp2): 95.3 ml EDV(sp4-el): 169.7 ml LAV(MOD-sp4): 94.5 ml LVAs ap4: 26.0 cm2 ESV(MOD-sp4): 73.6 ml ESV(sp4-el): 74.5 ml EF(MOD-sp4): 55.1 % EF(sp4-el): 56.1 % SV(sp4-el): 95.2 ml LA A4 area: 26.7 cm2 LA dimension(2D): 4.6 cm RA A4 area: 18.5 cm2 Time Measurements MV dec time: 0.22 sec Doppler Measurements AND Calculations MV E max haris: 58.2 cm/sec Lat Peak E' Haris: 7.7 cm/sec Med Peak E' Haris: 4.1 cm/sec MV A max haris: 96.5 cm/sec E/E' lat: 7.6 E/E' med: 14.2 MV E/A: 0.60 Ao V2 max: 145.2 cm/sec LV V1 max: 114.6 cm/sec PA V2 max: 124.1 cm/sec Ao max P.4 mmHg LV V1 max P.3 mmHg TR max haris: 239.9 cm/sec TR max P.0 mmHg Interpretation Summary Moderate concentric left ventricular hypertrophy. The estimated ejection fraction is 65 %. Stage 1 diastolic dysfunction. Trivial mitral valve insufficiency. Trivial tricuspid valve insufficiency. Right ventricular systolic pressure estimated to be 30 mmHg. There is no comparison study available. Ordering Physician: Hilton Perez Referring Physician: Hilton Perez Performed By: Sussy Swenson RDCS 09/10/18 125 Date Jarvis Kramer MD CC: Christ Santos MD; Hilton Perez MD Date Dictated: 09/10/18 112 Date Transcribed: 09/10/181250 Milk Truck Driver: Signed DISCHARGE INSTRUCTION Observed: 09/08/2018 Status: F Source: [place] 7:05 AM [facility] REPOSITORY [facility] Medical Records Department [address] [place] [address] [place] [address] Discharge Instruction 09/05/18 1241 MR#: [id number] Acct: [id number] Name: BAN RIVAS Rep #: [id number] : 1945 73 From: Claudio Velazquez MD PCP: Christ Santos MD Status: DEP ER ED Disposition - Plan for ED Patient: Disposition: Home or Assisted Living Chief Complaint: Chest Other Instructions: Electrocardiogram (ECG) Referrals: Christ Santos MD [Primary Care Provider] - What to do if you have Problems For any increased pain, shortness of breath, bleeding, nausea or vomiting, chest pain, or any unexpected problems, contact your Primary Care Provider. Call [facility] ([phone]) or report to the closest Emergency Room. Call 911 if necessary. 09/08/18 0705 <Electronically signed by Claudio Velazquez MD> Date Claudio Velazquez MD Cosigner Signature (If Indicated): Date CC: Christ Santos MD EMERGENCY DEPARTMENT Observed: 09/08/2018 Status: F Source: [place] SUMMARY 7:05 AM [facility] REPOSITORY [facility] Medical Records Department [address] [place] [address] Emergency Department Summary 09/05/18 1154 MR#: [id number] Acct: [id number] Name: BAN RIVAS Rep #: [id number] : 1945 73 From: Claudio Velazquez MD PCP: Christ Santos MD Status: DEP ER - ER Visit Summary Date of Service: 09/05/18 Chief Complaint: [] Abnormal EKG History of Present Illness: The patient is a 73 M [] sent in for abnormal EKG. He was at pretesting for surgery. He is having a bladder stone removed and some work on his prostate by urology. He has no symptoms and EKG was obtained. He stated he is never had one before. It showed sinus rhythm at a rate of 79. There is T wave inversion in 1 aVL biphasic T wave in V2 and biphasic T waves in V4 and T wave inversion in V5 and V6. No evidence of STEMI. Patient's never had a cardiac evaluation. He denies any cardiac symptoms at this time. Physical Examination: [] Vital signs reviewed General: Well-nourished well-developed Head: Normocephalic atraumatic Eyes: Pupils equal round and reactive to light extraocular movements intact ENT: TMs clear no hemotympanum no trauma Neck: Nontender full range of motion Cardiovascular: Regular rate rhythm no murmurs normal S1-S2 Respiratory: No distress clear to auscultation bilaterally chest nontender Abdomen: Soft nontender nondistended normal bowel sounds no masses Back: Nontender no CVA tenderness Extremities: Nontender active range of motion 4 extremities no trauma Skin: Normal color no trauma Neuro alert oriented cranial nerves II through XII intact normal strength sensation reflexes Test Results: [] Emergency Department Course and Treatment: [] Lab work obtained. Lab work is negative. Troponin negative. Chemistry showed a chloride of 110. CBC normal. I discussed with the patient he has a procedure next Saturday. He will follow- up with his family doctor for further evaluation to make sure he gets full medical clearance. I do not feel he needs to be admitted. He is asymptomatic with abnormal EKG. He has never had one before to compare this to. Treatment Plan: [] Disposition: [] Impression: [] Abnormal EKG T wave inversions This note was generated with [employer] dictation software. It may contain incorrect words, spelling, and punctuation that were not noted in review of the chart prior to signing ED Disposition - Plan for ED Patient: Chief Complaint: Chest Other Referrals: Christ Santos MD [Primary Care Provider] - What to do if you have Problems For any increased pain, shortness of breath, bleeding, nausea or vomiting, chest pain, or any unexpected problems, contact your Primary Care Provider. Call [facility] ([phone]) or report to the closest Emergency Room. Call 911 if necessary. 09/08/18 0705 <Electronically signed by Claudio Velazquez MD> Date Claudio Velazquez MD Cosigner Signature (If Indicated): Date CC: Christ Santos MD CBC W/DIFF, AUTOMATED Collected: 09/05/2018 Status: F Source: [place] 12:05 PM [facility] REPOSITORY TYPE CODE TESTS RESULT OUT OF RANGE REFERENCE UNITS LAB L100.1000 4.4-11.0 K/mm3 Normal WBC 7.2 LAB L100.1200 4.6-6.2 M/mm3 Normal RBC 5.30 LAB L100.1300 13.0-16.5 g/dl Normal HGB 16.2 LAB L100.1400 40-54 % Normal HCT 49.0 LAB L100.1500 80-94 fL Normal MCV 92.5 LAB L100.1600 27.0-32.0 pg Normal MCH 30.6 LAB L100.1700 32-36 g/gl Normal MCHC 33.1 LAB L100.1810 11.6-14.6 % Normal RDW CV 13.9 LAB L100.1820 35.1-43.9 fl High RDW SD 46.9 LAB L100.1900 150-450 K/mm3 Normal PLT 173 LAB L100.2000 6.2-12.0 fl Normal MPV 10.4 LAB L100.2100 47-70 % Normal NEUT% 53.1 LAB L100.2200 19-41 % Normal LY% 33.8 LAB L100.2300 0-10 % Normal MONO% 7.2 LAB L100.2400 0-5 % High EO% 5.2 LAB L100.2500 0-1 % Normal BASO% 0.6 LAB L100.2550 0.0-0.9 % Normal IM GRAN % 0.100 Result Comment: IG% - Immature Granulocytes (promyelocytes, myelocytes and metamyelocytes) > 1% indicates that a LEFT SHIFT is Present. LAB L100.2620 2.0-7.7 X10 3/uL Normal Absolute Neut 3.8 LAB L100.2720 0.83-4.51 X10 3/ul Normal Absolute Lymph 2.43 Performed By: #### L100.0100 #### [facility] [address] [place], [address] BASIC METABOLIC Collected: 09/05/2018 Status: F Source: [place] PROFILE (BMP) 12:05 PM [facility] REPOSITORY TYPE CODE TESTS RESULT OUT OF RANGE REFERENCE UNITS LAB L501.0100 74-106 mg/dL Normal GLU 97 Result Comment: Please note revised GLUCOSE reference range effective 2017. LAB L501.1000 7-18 mg/dL High BUN 30 LAB L501.1100 0.70-1.30 mg/dL Normal CREAT,SERUM 1.09 Result Comment: The validity of the calculated GFR AND GFRAA in patients over 70 years has not been determined. Clinical correlation is essential. LAB L501.1110 >60 mL/min Normal EST GFR 70 Result Comment: Non- GFR Calc LAB L501.1115 >60 mL/min Normal EST GFR - AA 85 Result Comment: GFR Calc LAB L501.1255 ml/min Normal Estimated CRCL 65.26 LAB L501.1300 10-20 RATIO High BUN/CRE 27.5 LAB L501.2200 8.5-10 mg/dL Normal .1 CA 8.8 LAB L501.5300 136-14 mmol/L Normal 5 NA 142 LAB L501.5600 3.5-5. mmol/L Normal 1 K 4.1 LAB L501.5900 98-107 mmol/L High CL 110 LAB L501.6100 21.0-3 mmol/L Normal 2.0 CO2 24.0 LAB L501.6200 5-15 Normal GAP 8 Performed By: #### L500.2500, L501.4010 #### [facility] [address] [place], [address] TROPONIN-I Collected: 09/05/2018 Status: F Source: LISMORE 12:05 PM [facility] REPOSITORY TYPE CODE TESTS RESULT OUT OF RANGE REFERENCE UNITS LAB L501.4010 <0.045 ng/mL Normal < 0.015 TROPONIN-I Result Comment: TROPONIN-I EXPECTED VALUES <0.045 Negative 0.045 - 0.590 Consistent with Cardiac Damage > OR = 0.600 Critical Value Not every elevated troponin is indicative of NH. These values should be used with clinical judgement in examining the patient's clinical picture for diagnosis. To establish a diagnosis of NH versus myocardial injury, there must be a demonstrated rise and/or fall in the troponin values, in addition to ischemic symptoms, EKG changes, new regional wall motion abnormality, and/or angiographical evidence. PLEASE NOTE: REFERENCE RANGES EDITED 18 Performed By: #### L500.2500, L501.4010 #### [facility] [address] [place], [address] POST VOID RESIDUAL Observed: 07/04/2018 Status: F [facility] 12[facility]15 PM [facility] REPOSITORY [facility] Imaging Services [address] [place] [address] Post Void Residual Bladder MR#: [id number] Acct: [id number] Name: BAN RIVAS Jayla Rep #: [id number] : 1945 M 73 From: Tawnya Hastings PCP: Christ Santos MD Status: REG CLI Study: Post Void Residual Bladder Date of Exam: 07/04/18 Exam# [id number] Ordering Dr: Christ Santos MD STUDY: ULTRASOUND - URINARY BLADDER REASON FOR EXAM: Male, 73 years old. Bladder mass. TECHNIQUE: Ultrasound evaluation of the urinary bladder was performed with real-time and static mart-scale imaging. COMPARISON: None. FINDINGS: The distended volume of the urinary bladder is 184.65 ml. The empty volume of the urinary bladder is 157.73 ml. The bladder wall is diffusely thickened(3 to 9 mm). There is a 3.0 x 2.8 x 3.0 cm hyperechoic/mobile intraluminal bladder mass demonstrated. There is a 2.2 cm bladder diverticulum demonstrated. There is an enlarged prostrate gland with 57 cc(normal <30 cc volume). US/Post Void Residual Bladder IMPRESSION: 1. Significant postvoid bladder residual. Bladder diverticulum. Possible bladder outlet obstruction. Clinical correlation is advised. 2. Diffuse abnormal wall thickening of the bladder. 3. A 3 cm hyperechoic/mobile bladder mass, question large intraluminal calculus cystoscopic correlation is recommended. 4. Enlarged prostrate gland. Correlate with serum PSA values. Electronically Signed: Russel Hastings MD at 20:59 EDT Tel , Service support , CC: Christ Santos MD Milk Truck Driver: Signed Observed: 06/27/2018 Status: F Source: [place] CULTURE, URINE 3:56 PM [facility] REPOSITORY Urine Culture Culture exhibits no growth. Performed By: #### M100.0650 #### [facility] [address] [place], [place], [address] CBC W/DIFF, AUTOMATED Collected: 06/11/2018 Status: F Source: [place] 3:03 PM [facility] REPOSITORY TYPE CODE TESTS RESULT OUT OF RANGE REFERENCE UNITS LAB L100.1000 4.4-11.0 K/mm3 Normal WBC 7.8 LAB L100.1200 4.6-6.2 M/mm3 Normal RBC 5.31 LAB L100.1300 13.0-16.5 g/dl Normal HGB 15.7 LAB L100.1400 40-54 % Normal HCT 49.6 LAB L100.1500 80-94 fL Normal MCV 93.4 LAB L100.1600 27.0-32.0 pg Normal MCH 29.6 LAB L100.1700 32-36 g/gl Low MCHC 31.7 LAB L100.1810 11.6-14.6 % Normal RDW CV 13.9 LAB L100.1820 35.1-43.9 fl High RDW SD 47.3 LAB L100.1900 150-450 K/mm3 Normal PLT 189 LAB L100.2000 6.2-12.0 fl Normal MPV 11.1 LAB L100.2100 47-70 % Normal NEUT% 56.2 LAB L100.2200 19-41 % Normal LY% 33.6 LAB L100.2300 0-10 % Normal MONO% 8.0 LAB L100.2400 0-5 % Normal EO% 1.9 LAB L100.2500 0-1 % Normal BASO% 0.3 LAB L100.2550 0.0-0.9 % Normal IM GRAN % 0.000 Result Comment: IG% - Immature Granulocytes (promyelocytes, myelocytes and metamyelocytes) > 1% indicates that a LEFT SHIFT is Present. LAB L100.2620 2.0-7.7 X10 3/uL Normal Absolute Neut 4.4 LAB L100.2720 0.83-4.51 X10 3/ul Normal Absolute Lymph 2.61 Performed By: #### L100.0100 #### [facility] [address] [place], [address] COMPREHENSIVE METABOLIC Collected: 06/11/2018 Status: F Source: [facility] 3:03 PM [facility] REPOSITORY TYPE CODE TESTS RESULT OUT OF RANGE REFERENCE UNITS LAB L501.0100 74-106 mg/dL Normal GLU 93 Result Comment: Please note revised GLUCOSE reference range effective 2017. LAB L501.1000 7-18 mg/dL High BUN 30 LAB L501.1100 0.70-1.30 mg/dL Normal CREAT,SERUM 1.21 Result Comment: The validity of the calculated GFR AND GFRAA in patients over 70 years has not been determined. Clinical correlation is essential. LAB L501.1110 >60 mL/min Normal EST GFR 62 Result Comment: Non- GFR Calc LAB L501.1115 >60 mL/min Normal EST GFR - AA 75 Result Comment: GFR Calc LAB L501.1300 10-20 RATIO High BUN/CRE 24.8 LAB L501.1500 6.4-8.2 g/dL T Normal PROT 8.1 LAB L501.1800 3.2-5.0 g/dL Normal ALB 4.0 LAB L501.1950 2.2-4.2 g/dL Normal GLOB 4.1 LAB L501.2000 0.9-2.4 RATIO Normal A/G 1.0 LAB L501.2200 8.5-10.1 mg/dL CA Normal 9.2 LAB L501.4100 15-37 U/L High AST 48 LAB L501.4305 45-117 U/L Normal ALK P 65 LAB L501.4405 16-61 U/L Normal ALT 29 LAB L501.4600 0.20-1.00 mg/dL T Normal BILI 0.80 LAB L501.5300 136-145 mmol/L NA Normal 142 LAB L501.5600 3.5-5.1 mmol/L K Normal 4.5 LAB L501.5900 98-107 mmol/L CL Normal 107 LAB L501.6100 21.0-32.0 mmol/L Normal CO2 27.0 LAB L501.6200 5-15 Normal GAP 8 Performed By: #### L500.4050, L500.4100, L501.9520, L501.9940 #### [facility] [address] [place], [address] LIPID PROFILE Collected: 06/11/2018 Status: F Source: [facility] 3:03 PM [facility] REPOSITORY TYPE CODE TESTS RESULT OUT OF RANGE REFERENCE UNITS LAB L501.4900 200 mg/dL Normal CHOL 172 Result Comment: <200 mg/dL Desirable 200-240 mg/dL Borderline >240 mg/dL High Risk LAB L501.5000 mg/dL Normal TRIG 90 Result Comment: The drugs N-Acetylcysteine and Metamizole may falsely depress this assay. Serum Triglycerides Reference Interval Normal <150 mg/dL Borderline high 150 - 199 mg/dL High 200 - 499 mg/dL Very High > or = 500 mg/dL LAB L501.6400 mg/dL Normal HDL 44 Result Comment: The drugs N-Acetylcysteine and Metamizole may falsely depress this assay. Reference Range HDL <40 mg/dL Low HDL Cholesterol HDL >or= 60 mg/dL High HDL Cholesterol LAB L501.6500 0-130 mg/dL Normal LDL 110 LAB L501.6600 5-40 mg/dL Normal VLDL 18 Performed By: #### L500.4050, L500.4100, L501.9520, L501.9940 #### [facility] [address] [place], [place], [id number] THYROID STIM HORMONE Collected: 06/11/2018 Status: F Source: LISMORE (TSH) 3:03 PM [facility] REPOSITORY TYPE CODE TESTS RESULT OUT OF RANGE REFERENCE UNITS LAB L501.9520 0.358-3.74 uIU/mL Normal TSH 1.04 Performed By: #### L500.4050, L500.4100, L501.9520, L501.9940 #### [facility] [address] [place], [place], [id number] PSA,TOTAL- DIAGNOSTIC Collected: 06/11/2018 Status: F Source: [place] 3:03 PM [facility] REPOSITORY TYPE CODE TESTS RESULT OUT OF RANGE REFERENCE UNITS LAB L501.9940 0.0-4.0 ng/mL PSA, Normal DIAGNOSTIC 2.72 Result Comment: This test was performed using the TPSA assay method for the Alekto chemistry system. Values obtained with different assay methods cannot be used interchangably. When changing PSA assays in the course of monitoring a patient, additional sequential testing should be carried out to confirm baseline values. Performed By: #### L500.4050, L500.4100, L501.9520, L501.9940 #### [facility] [address] [place], [place], [address] CT/NG WCH BY PCR Collected: 06/11/2018 Status: F Source: [place] 2:25 PM [facility] REPOSITORY TYPE CODE TESTS RESULT OUT OF RANGE REFERENCE UNITS LAB L8200.2100 Negative Normal Chlam Negative Trac PCR LAB L8200.2200 Negative Normal NG by Negative PCR Performed By: #### L8200.2000 #### [facility] [address] [place], [address] Observed: 06/11/2018 Status: F Source: [place] CULTURE, URINE 2:25 PM [facility] REPOSITORY Urine Culture Culture exhibits no growth. Performed By: #### M100.0650 #### [facility] [address] [place], [address] CYTOLOGY, BODY FLUID / Collected: 06/11/2018 Status: F Source: [place] CSF 2:25 PM [facility] REPOSITORY Order Comment: Specimen Source: URINE TYPE CODE TESTS RESULT OUT OF RANGE REFERENCE UNITS LAB L350.1000 SEE Normal PATHOLOGY CYTOLOGY,BF REPORT /CSF Result Comment: Specimen submitted to Anatomical Pathology Department for testing. Performed By: #### L350.1000 #### [facility] [address] [place], [address] CYTOSPIN ON FLUID Observed: 06/11/2018 Status: F Source: [place] 12:00 AM [facility] REPOSITORY Patient: BAN RIVAS : 1945 (73/M) Acct Num: [id number] Phys: Christ Santos MD Unit Num: [id number] Loc: [facility]AB Specimen: [id number] Received: 06/12/18 - 919 Spec Type: CYSPIN FL TISSUES TISSUES: Urine COMMENT The specimen contains abundant acute inflammatory cells. Clinical correlation is suggested. CYTOLOGY GROSS Received is <0.5 ml of clear yellow fluid labeled with the patient's name and and designated per the requisition as urine. Submitted for cytology preparation. / 06/12/18 TC:5 CPT: 16822 CYTOLOGY STUDY Slides are reviewed. DIAGNOSIS CYTOLOGY Urine for cytology (cytospin): Negative for malignant cells. AM:javier 06/13/18 HEADER OPERATION: Not noted PRE-OP DIAGNOSIS: Dysuria; history of bladder mass on ultrasound TISSUE SUBMITTED: Urine for cytology Signed Jerman Justice 06/13/18 <signature on file> Performed By: #### PCYSPIN #### [facility] [address], [address] ALLERGIES ALLERGIES DATE TYPE / CODE NAME / CODE REACTION SEVERITY SOURCE 09/05/2018 Drug Penicillins/ Rash Unknown [facility] Allergy/4160 [id number]( Hospital [address](SNOMED XNORM) Repository CT) ENCOUNTERS ENCOUNTERS ADMIT/DISCHARGE ACCOUNT ADMITTING ENCOUNTER LOCATION SOURCE NUMBER CLASS 09/10/2018/ [id number] Ana Hilton Inpatient [place] [address] [facility] ing:PCURoom: Repository PCI456Uui: 1 09/10/2018/ [id number] Ambulatory BMSBuilding:W [place] [facility] 1 [facility] Repository 09/05/2018/ [id number] Emergency [place] [facility] 7 [facility] ing:ED Repository 09/05/2018 [id number] Ambulatory BMSBuilding:W [place] 2 [facility] Repository 07/04/2018 [id number] Ambulatory [place] 0 [facility] ing:US Repository 07/03/2018 [id number] Ambulatory [place] 3 [facility] ing:US Repository 06/27/2018 [id number] Ambulatory [place] 2 [facility] ing:LABSPEC Repository 06/11/2018 [id number] Ambulatory [place] 7 [facility] ing:MFPLAB Repository PAYERS PAYERS ENCOUNTER GUARANTOR PAYER SUBSCRIBER SOURCE 09/10/2018 BAN Dickerson Primary Insurance:[facility] BAN Hi [id number] [facility] YODERDOB: [address], Number: [id number] [address]Fdn: [id number] Repository Date:2018-08-20 () 09/10/2018 Secondary NOT GIVENUNK [place] Insurance:SELF PAY [facility] Number: Effective Repository Date:2018-08-20 09/10/2018 BAN Dickerson Primary Insurance:[facility] BAN Hi [id number] TR PACKAGE PLANPolicy YODERDOB: [address], Number: [id number] [address]Wit: [id number] Repository Date:2018-08-20 () 09/10/2018 Secondary NOT GIVENUNK [place] Insurance:SELF PAY [facility] Number: Effective Repository Date:2018-09-10 09/05/2018 BAN E Primary BAN Hi [id number] TR Insurance:PRESYBETERIAN YODERDOB: [address] Number: [id number] [address]Uck: [id number] Repository Date:2018-09-05 () 09/05/2018 Secondary NOT GIVENUNK [place] Insurance:SELF PAY [facility] Number: Effective Repository Date:2018-09-05 09/05/2018 BAN E Primary NOT GIVENUNK [place] [id number] TR Insurance:SELF PAY [address] [address]Eur: Number: Effective Repository Date:2018-09-05 () 07/04/2018 BAN E Primary BAN Hi [id number] TR Insurance:PRESYBETERIAN YODERDOB: [address] Number: [id number] [address]Myw: [id number] Repository Date:2018-07-02 (HP) 07/04/2018 Secondary NOT GIVENUNK [place] Insurance:SELF PAY [facility] Number: Effective Repository Date:2018-07-02 07/03/2018 BAN E Primary BAN Hi [id number] TR Insurance:PRESYBETERIAN YODERDOB: [address] Number: [id number] [facility] [address]Pao: 1Effective Repository Date:2018-06-30 () 07/03/2018 Secondary NOT GIVENUNK [place] Insurance:SELF PAY [facility] Number: Effective Repository Date:2018-06-30 06/27/2018 BAN Primary NOT GIVENUNK [place] [id number] TR Insurance:SELF PAY [address] [address]Wmv: Number: Effective Repository Date:2018-06-27 () 06/11/2018 BAN Primary NOT GIVENUNK [place] [id number] TR Insurance:SELF PAY [address] [address]Zac: Number: Effective Repository Date:2018-06-11 ()
== END 2018-09-11 09:15 | disposition home or self-care (01) | DRG 694 ==
LOC: PCU 13:12 → SDC 13:12
PROVIDERS: Internal Medicine Cardiovascular Disease; Admitting Provider Urology; Family Provider Family Medicine; PCP Family Medicine; Referring Provider Urology; Visit Provider Urology
PROC: 0TCB8ZZ Extirpation of Matter from Bladder, Via Natural or Artificial Opening Endoscopic (ICD-10-PCS; 2018-09-10 12:30)
DX: N21.0 Calculus in bladder (principal); N13.8 Other obstructive and reflux uropathy; N40.1 Benign prostatic hyperplasia with lower urinary tract symptoms; I10 Essential (primary) hypertension; R94.31 Abnormal electrocardiogram [ECG] [EKG]
CPT/HCPCS: 36415; 80061; 93005; 93017; 93306; 93350; 97802; J7030; J7120; Q9957; A4216; C8928; J2405